=== PATIENT | female | born 1960 | race Caucasian/White ===

== ENCOUNTER 2017-01-30 07:05 | Emergency (ER) | payer MEDICAID, OTHER ==
[~2017-01-30] VITALS: Ht 157.5 cm; Wt 64.5 kg
[~2017-01-30 07:05] MED LIST: ALBU8.5H3 IH
[2017-01-30 07:07] VITALS: Ht 157.5 cm; Wt 64.5 kg
[2017-01-30] MEDS ORDERED: KETOROLAC 30 MG INJ IM STA (07:21)
--- NOTE | 2017-01-30 07:28 | ERD ---
ER Documentation Chief Complaint Date/Time DATE: 01/30/17 TIME: 07:24 Chief Complaint lower back pain x 2 days HPI This is a 56-year-old female presenting to the emergency department with acute lower back pain 3 days. Patient describes bilateral lower back pain that is radiating down the posterior aspect of bilateral legs. Patient denies any weakness, numbness or tingling. Denies loss of sensation in extremities. Rating pain 10/10 and describes pain as spasming. Patient denies any fall or injury. No heavy lifting. Denies abdominal pain, nausea or vomiting. Denies saddle anesthesia, urinary or fecal incontinence. ROS All systems reviewed and are negative except as per history of present illness. Medications Home Meds Active Scripts Hydrocodone/Acetaminophen ([place] 5-325 Tablet) 1 Each Tablet, 1 TAB PO Q6H Y for PAIN, #7 TAB Prov:GRANT GILMAN NP 01/30/17 Ibuprofen* (Motrin*) 600 Mg Tab, 600 MG PO Q6, #15 TAB Prov:GRANT GILMAN NP 01/30/17 Nitrofurantoin Monohyd Macrocr* (Macrobid*) 100 Mg Capsr, 100 MG PO BID for 5 Days, CAP Prov:GRANT GILMAN NP 01/30/17 Reported Medications Albuterol Sulfate* (Proair HFA*) 8.5 Gm Hfa.aer.ad, IH BID Y, 0 Refills 04/10/11 Allergies Allergies: Coded Allergies: Penicillins (Verified Allergy, Mild, RASHES, 04/03/14) PMhx/Soc History of Surgery: Yes (CYST REMOVAL FOM RIGHT BREAST) Anesthesia Reaction: No Hx Neurological Disorder: No Hx Respiratory Disorders: Yes (ASTHMA) Hx Cardiac Disorders: No Hx Psychiatric Problems: No Hx Miscellaneous Medical Probl: Yes (SMOKER) Hx Alcohol Use: No Hx Substance Use: No Hx Tobacco Use: Yes Smoking Status: Current every day smoker Physical Exam Vitals Vital Signs Date Time Temp Pulse Resp B/P Pulse Ox O2 Delivery O2 Flow Rate FiO2 01/30/17 07:07 98.2 58 19 137/62 98 Physical Exam Const: Alert, standing, unable to sit due to pain Head: Atraumatic Eyes: Normal Conjunctiva ENT: Normal External Ears, Nose and Mouth. Neck: Full range of motion..~ No meningismus. Resp: Clear to auscultation bilaterally Cardio: Regular rate and rhythm, no murmurs Abd: Soft, non tender, non distended. Normal bowel sounds Skin: No petechiae or rashes Back: No midline or flank tenderness Ext: No cyanosis, or edema, positive straight leg raise in bilateral legs Neur: Awake and alert Psych: Normal Mood and Affect Results 24 hrs Laboratory Tests Test 01/30/17 07:47 Bedside Urine pH (LAB) 5.0 Bedside Urine Protein (LAB) Negative Bedside Urine Glucose (UA) Negative Bedside Urine Ketones (LAB) Negative Bedside Urine Blood Negative Bedside Urine Nitrite (LAB) Negative Bedside Urine Leukocyte Esterase (L 1+ Current Medications Medications (Trade) Dose Ordered Sig/Camryn Route PRN Reason Start Time Stop Time Status Last Admin Dose Admin Ketorolac Tromethamine (Toradol) 30 mg ONCE STAT IM 01/30/17 07:21 01/30/17 07:23 DC 01/30/17 07:44 Acetaminophen/ Hydrocodone Bitart ([place] (5/325)) 1 tab ONCE ONCE PO 01/30/17 07:30 01/30/17 07:31 DC 01/30/17 07:43 Procedures/MDM MDM: This is a 56-year-old female resenting to emergency department with bilateral lower back pain 3 days. Patient is neurovascularly intact. No neuro deficits. Patient is walking normally. No weakness. Sensation is fully intact. Vital signs are stable. No fevers or chills. No active vomiting or diarrhea. No abdominal pain. Patient states she took Motrin at home prior to arrival without relief of symptoms. Patient given Toradol 30 mg IM and [place] 5/ 325 mg p.o. Urine dip shows 1+ leukocytosis otherwise negative. This may be due to early UTI versus contamination. Urine is negative. Upon reassessment patient states she continues to have pain however pain is now tolerable. Remains neurovascularly intact. Vital signs are stable. Low suspicion for cauda equina syndrome, pyelonephritis, acute fracture, acute dislocation, epidural abscess, malignancy and AAA rupture. Differential Diagnosis includes but is not limited to back strain, back pain with sciatica, UTI, vertebral fracture, herniated disc, spinal stenosis and nephrolithiasis. Patient is appropriate for outpatient management will be given prescription for Ibuprofen, [place] 5/325mg #7 and Macrobid. Instructed patient to follow-up with primary care provider in the next 2-3 days for reassessment. Resources provided. Return to ED for any high fever, chest pain, difficulty breathing, shortness breath, wheezing, vomiting, diarrhea, abdominal pain or any new or worsening symptoms. Patient verbalizes understanding. All questions answered at discharge. Pashto translation use during this encounter. Departure Diagnosis: Primary Impression: Back pain Back pain location: low back pain Chronicity: acute Back pain laterality: bilateral Sciatica presence: with sciatica Sciatica laterality: bilateral sciatica Qualified Code: M54.42 - Acute bilateral low back pain with bilateral sciatica Additional Impression: UTI (urinary tract infection) Urinary tract infection type: site unspecified Hematuria presence: without hematuria Qualified Code: N39.0 - Urinary tract infection without hematuria, site unspecified Condition: GRANT Cagle NP Jan 30, 2017 07:28
[2017-01-30] MEDS ORDERED: HYDROCODONE/APAP (5/325) TAB PO ONE (07:30)
[2017-01-30 07:41] LABS: URINE BLOOD (Dip) POC Negative (NEGATIVE)
[2017-01-30] MEDS ORDERED: IBUP-1542 PO (07:53)
[2017-01-30] MEDS ORDERED: HYDR-906 PO (07:53)
[2017-01-30] MEDS ORDERED: NITR-58 PO (07:53)
[2017-01-30 16:09] LABS: URINE BLOOD (Dip) POC Negative (NEGATIVE)
== END 2017-01-30 08:01 | disposition home or self-care (01) ==
LOC: FTE 07:05
DX: M54.42 Lumbago with sciatica, left side (principal); N39.0 Urinary tract infection, site not specified; J45.909 Unspecified asthma, uncomplicated; F17.210 Nicotine dependence, cigarettes, uncomplicated
CPT/HCPCS: 81003; 96372; J1885; Z7502; Z7610

== ENCOUNTER 2018-03-17 16:48 | Emergency (ER) | END 2018-03-17 22:31 | disposition home or self-care (01) ==

== ENCOUNTER 2018-05-07 08:01 | Emergency (ER) | END 2018-05-07 09:46 | disposition home or self-care (01) ==

== ENCOUNTER 2019-03-13 07:01 | Day surgery (SDC) | payer OTHER ==
[2019-03-13] VITALS (10 sets, daily range): BP systolic 100–131; BP diastolic 59–80; PULSE 47–66; RESP 12–22; Ht 157.5 cm; Wt 67.4 kg
[~2019-03-13] VITALS: Ht 157.5 cm; Wt 67.4 kg
[~2019-03-13 07:01] MED LIST changes: -ALBU8.5H3 IH; +ALBU8.5H8 IH; +ATOR40TA68 PO; +AZIT250T PO; +BENZ-6 PO; +HYDR-4011 PO; +IBUP-1542 PO; +ONDA4TAB14 PO; +RANI150T35 PO
[2019-03-13] MEDS ORDERED: PROPOFOL 60 ML ONE (12:50)
[2019-03-13] MEDS ORDERED: GLYCOPYRROLATE 0.4 MG INJ ONE (12:50)
== END 2019-03-13 12:53 | disposition home or self-care (01) ==
LOC: GIL 07:01
PROVIDERS: ATTEND Internal Medicine Gastroenterology
DX: K64.8 Other hemorrhoids (principal); K44.9 Diaphragmatic hernia without obstruction or gangrene; K29.30 Chronic superficial gastritis without bleeding; F17.200 Nicotine dependence, unspecified, uncomplicated; J45.909 Unspecified asthma, uncomplicated; Z80.0 Family history of malignant neoplasm of digestive organs
CPT/HCPCS: 43239; 45378; Z7610; 88305; 88312